=== PATIENT | male | born 1970 | race Caucasian/White ===

== ENCOUNTER → 2016-12-22 | Outpatient (CLI) | payer BC ==
[2016-12-22 08:11] LABS: Basophils % (A) 1 %; CH 32.7; CHCM 35.9; Eosinophils # (A) 0.2 k/uL (0-0.7); Eosinophils % (A) 4 %; HDW 2.88; HGB 16.6 gm/dL (13.0-17.5); Luc # (Auto) 0.13; Luc % (Auto) 3; Lymphocytes % (A) 23 %; MCH 31.7 pg (25.0-35.0); MCHC 34.6 g/dL (31.0-37.0); MCV 91.5 fL (80.0-100.0); Mean Platelet Volume 6.4; Monocytes # (A) 0.2 k/uL (0-1.0); Monocytes % (A) 5 %; Neutrophils # (A) 2.7 k/uL (1.3-7.7); Neutrophils % (A) 63 %; RBC 5.24 m/uL (4.30-5.90); RDW 12.9 % (11.5-15.5); WBC 4.2 k/uL (3.8-10.6); WBC (Perox) 4.19
[2016-12-22 12:04] LABS: ALT 49 U/L (21-72); AST 40 U/L (17-59); Alkaline Phosphatase 68 U/L (38-126); Anion Gap 11 mmol/L; Blood Urea Nitrogen 9 mg/dL (9-20); Calcium 9.6 mg/dL (8.4-10.2); Carbon Dioxide 28 mmol/L (22-30); Chloride 104 mmol/L (98-107); Glucose 85 mg/dL (74-99); Non-African American GFR(MDRD) >60 (>60 ml/min/1.73 sqM); Potassium 4.5 mmol/L (3.5-5.1); Sodium 143 mmol/L (137-145); Total Bilirubin 1.2 mg/dL (0.2-1.3)
== END | disposition home or self-care (01) ==
LOC: LABWHC1 07:08
PROVIDERS: ATTEND Family Medicine
DX: R79.89 Other specified abnormal findings of blood chemistry (principal); R06.00 Dyspnea, unspecified
CPT/HCPCS: 36415; 80053; 84402; 84403; 84443; 85025

== ENCOUNTER → 2017-07-07 | Outpatient (CLI) | payer BC | END | disposition home or self-care (01) | LOC: PTMAIN 08:58 | PROVIDERS: ATTEND Otolaryngology | DX: K21.9 Gastro-esophageal reflux disease without esophagitis (principal) | CPT/HCPCS: 31579 ==

== ENCOUNTER → 2022-04-01 | Outpatient (CLI) | payer BC ==
--- NOTE | 2022-04-01 12:12 | CT ---
EXAMINATION TYPE: CT soft tissue neck w con CT DLP: 699.1 mGycm, Automated exposure control for dose reduction was used. DATE OF EXAM: 04/01/2022 11:38 AM COMPARISON: None. CLINICAL INDICATION:Male, 52 years old with history of R11.10 Vomiting; PHH, trouble swallowing and v omiting after eating x1 month TECHNIQUE: Standard enhanced CT of the neck following intravenous administration of 100 cc of Isovue 300. Axial sections with coronal and sagittal reformats were obtained. FINDINGS: Brain: Visualized portions are grossly unremarkable. Orbits: Unremarkable Sinuses: Grossly unremarkable. Suprahyoid Neck: The oropharynx, oral cavity, parapharyngeal and retropharyngeal spaces are clear and symmetric. The nasopharynx is unremarkable. Infrahyoid Neck: The larynx, hypopharynx, and supraglottic area are clear and symmetric. Musculoskeletal: No acute osseous abnormality. Anterior cervical fusion of C5-C6. Hardware appears in tact. Straightening of the cervical spine which may be due to patient position. Mild the level degene rative disc disease from C6 through T2. Mild anterior osteophytosis at T1-T2. Lymph nodes: No pathologically enlarged lymph nodes. Vascular structures: Visualized major arteries are patent without evidence of aneurysm. Thoracic Inlet/airway: Airway is patent. The lung apices are clear. Soft tissues/Thyroid: Thyroid and remainder of the soft tissues are unremarkable. Other: none. IMPRESSION 1. No significant abnormality identified. 2. Postsurgical changes anterior cervical fusion of C5-C6.
--- NOTE | 2022-04-01 12:42 | FL ---
INDICATION: Patient age:Male; 52 years old; Reason for study: R11.10 Vomiting; PHH. COMPARISON: No direct comparisons. TECHNIQUE: Utilizing real-time video recording fluoroscopy, multiple images were obtained after admin istration of various consistencies of barium contrast. A speech pathologist was present throughout the exam. Fluoroscopy time of 1.14 minutes. FINDINGS: Consistencies administered: Thin, applesauce, cracker, and ice barium. During the oral phase there i s normal formation of food bolus with normal initiation of swallow with all consistencies. Premature spill: With thin consistency. Laryngeal penetration: None identified. Piriform Retention:None identified Vallecular retention: Trace retention with cracker consistency that clears with subsequent swallow. Nasopharyngeal reflux: None identified. Tracheal aspiration: None identified. Small hiatal hernia demonstrated. IMPRESSION: 1. No evidence of tracheal aspiration. 2. Small hiatal hernia. Please see dedicated speech pathology report for additional information.
== END | disposition home or self-care (01) ==
LOC: RADFLMAIN 10:56
PROVIDERS: ATTEND Otolaryngology Facial Plastic Surgery
DX: K44.9 Diaphragmatic hernia without obstruction or gangrene (principal); Z98.1 Arthrodesis status
CPT/HCPCS: 92611; 74230; 70491; Q9967

== ENCOUNTER → 2022-04-02 | Outpatient (CLI) | payer BC ==
--- NOTE | 2022-04-02 15:04 | FL ---
EXAMINATION TYPE: FL barium swallow DATE OF EXAM: 04/02/2022 COMPARISON: None HISTORY: Vomiting acid reflux TECHNIQUE: A single contrast UGI study is performed. FINDINGS: [place] fluoroscopy time: 53 seconds. Images: 119 Esophagus dilated to normal caliber is normal contour of the gastroesophageal junction. Gastroesophag eal junction opens to a normal caliber. Some reflux into the distal esophagus was evident during the examination. There is complete stripping esophageal bubbles in the horizontal drinking position. A fe w tertiary contractions may be present during the examination compatible some mild presbyesophagus. IMPRESSIONS: 1. Mild gastroesophageal reflux. 2. Mild presbyesophagus.
== END | disposition home or self-care (01) ==
LOC: RADUSWWP 08:57
PROVIDERS: ATTEND Otolaryngology Facial Plastic Surgery
DX: K21.9 Gastro-esophageal reflux disease without esophagitis (principal); K22.89 Other specified disease of esophagus
CPT/HCPCS: 74220